=== PATIENT | male | born 1995 ===

== ENCOUNTER 2017-04-05 19:58 | Emergency (ER) | payer BC ==
--- NOTE | 2017-04-05 22:02 | ED PDOC ---
HPI: Abdomen Time Seen by Provider: 04/05/17 22:01 Chief Complaint (Nursing): Abdominal Pain Chief Complaint (Provider): flank pain History Per: Patient Additional Complaint(s): 21-year-old male with no past medical history presents to emergency department with right lower quadrant pain and nausea that started earlier today. Patient denies any vomiting but has had diarrhea. No known fever or chills. Patient denies any dysuria but has had increased frequency today. PMD: none Past Medical History Reviewed: Historical Data, Nursing Documentation, Vital Signs Vital Signs: Last Vital Signs Temp 97.9 F 04/06/17 00:43 Pulse 71 04/06/17 00:43 Resp 18 04/06/17 00:43 BP 108/66 04/06/17 00:43 Pulse Ox 100 04/06/17 00:43 - Medical History PMH: No Chronic Diseases - Surgical History Surgical History: No Surg Hx - Family History Family History: States: Unknown Family Hx, Hypertension - Living Arrangements Living Arrangements: With Family - Social History Current smoker - smoking cessation education provided: No Alcohol: None Drugs: Denies - Home Medications Home Medications: Ambulatory Orders Medication Instructions Recorded Dicyclomine [Bentyl] 20 mg PO BID PRN #30 tab 01/09/16 Polyethylene Glycol 3350 [Miralax] 17 gm PO DAILY PRN #1 bottle 01/09/16 Dicyclomine [Bentyl] 20 mg PO Q12 PRN #20 tab 04/01/16 Dicyclomine [Bentyl] 20 mg PO TID #30 tab 04/23/16 - Allergies Allergies/Adverse Reactions: Allergies Allergy/AdvReac Type Severity Reaction Status Date / Time amoxicillin Allergy RASH Verified 04/05/17 21:30 Review of Systems ROS Statement: Except As Marked, All Systems Reviewed And Found Negative Constitutional: Negative for: Fever, Chills Cardiovascular: Negative for: Chest Pain Respiratory: Negative for: Cough Gastrointestinal: Positive for: Nausea, Abdominal Pain, Diarrhea. Negative for : Vomiting Genitourinary Male: Positive for: Frequency. Negative for: Dysuria, Hematuria Physical Exam - Reviewed Nursing Documentation Reviewed: Yes Vital Signs Reviewed: Yes - Physical Exam Appears: Positive for: Well, Non-toxic, No Acute Distress Skin: Negative for: Rash Eye Exam: Positive for: Normal appearance Cardiovascular/Chest: Positive for: Regular Rate, Rhythm Respiratory: Positive for: Normal Breath Sounds Gastrointestinal/Abdominal: Positive for: Other (Moderate right lower quadrant tenderness with slight guarding, no rebound, no distention, normoactive bowel sounds in all 4 quadrants) Back: Negative for: L CVA Tenderness, R CVA Tenderness Extremity: Positive for: Normal ROM Neurologic/Psych: Positive for: Alert, Oriented - Laboratory Results Result Diagrams: 04/05/17 23:29 02 23:29 Urine dip results: Negative for: Leukocyte Esterase, Blood, Nitrate, Ketones, Glucose, Bilirubin, Protein - ECG O2 Sat by Pulse Oximetry: 99 Pulse Ox Interpretation: Normal - Other Rad CT abd and pelvis with IV contrast X-Ray: Read By Radiologist X-Ray Interpretation: see below Medical Decision Making Medical Decision Makin-year-old male with nausea and abdominal pain Plan: Urine dip CBC CMP Lipase CT abd and pelvis with IV contrast IVF IV toradol CT: ABDOMEN and PELVIS: Intraperitoneal space: There is no free air or free fluid. Bones/joints: The bony structures Soft tissues: There is a small fat containing umbilical hernia. Vasculature: Vascular structures are unremarkable. Lymph nodes: There are multiple mildly enlarged mesenteric nodes in the right lower quadrant.There are no acute osseous abnormalities. IMPRESSION: No acute solid visceral or bowel abnormality, no CT findings of appendicitis; prominent right lower quadrant mesenteric nodes may reflect mesenteric adenitis Thank you for allowing us to participate in the care of your patient. Patient is aware of diagnostic test results. Pain resolved after medication provided. Advised NSAID pain as needed, bland diet and follow-up with clinic or PMD Disposition - Clinical Impression Clinical Impression: Mesenteric adenitis - Patient ED Disposition Is Patient to be Admitted: No Counseled Patient/Family Regarding: Studies Performed, Diagnosis, Need For Followup - Disposition Referrals: [facility] [Outside] Disposition: Routine/Home Disposition Time: 00:49 Condition: STABLE Additional Instructions: Tylenol for pain as needed. Follow-up with clinic or primary doctor for any persistent symptoms. Instructions: Mesenteric Lymphadenitis Forms: [employer] ([place]), [facility] ED School/Work Excuse Results - Lab Results Lab Results: 04/05/17 04/05/17 23:29 23:29 WBC 8.2 D RBC 4.71 Hgb 14.3 Hct 41.1 MCV 87.2 MCH 30.3 MCHC 34.8 RDW 12.5 Plt Count 284 MPV 7.9 Neut % (Auto) 46.8 L Lymph % (Auto) 40.1 H [place] % (Auto) 9.5 Eos % (Auto) 2.7 Baso % (Auto) 0.9 Neut # (Auto) 3.8 Lymph # (Auto) 3.3 [place] # (Auto) 0.8 Eos # (Auto) 0.2 Baso # (Auto) 0.1 Sodium 142 Potassium 3.9 Chloride 100 Carbon Dioxide 29 Anion Gap 17 BUN 8 L Creatinine 0.7 L Est GFR ( Amer) > 60 Est GFR (Non-Af Amer) > 60 Random Glucose 84 Calcium 9.8 Total Bilirubin 0.6 AST 43 ALT 46 Alkaline Phosphatase 109 Total Protein 8.6 H Albumin 4.7 Globulin 3.9 Albumin/Globulin Ratio 1.2 Lipase 76
[2017-04-05 23:32] LABS: BASO # 0.1 K/uL (0.0-0.2); BASO % 0.9 % (0.0-2.0); EOS # 0.2 K/uL (0.0-0.7); EOS % 2.7 % (0.0-4.0); HEMOGLOBIN 14.3 g/dL (12.0-18.0); LYMPH # 3.3 K/uL (1.0-4.3); LYMPH % 40.1 % (20.0-40.0); MEAN CELL VOLUME 87.2 fl (80.0-94.0); MEAN CORPUSCULAR HEMOGLOBIN 30.3 pg (27.0-31.0); MEAN CORPUSCULAR HGB CONC 34.8 g/dL (33.0-37.0); MEAN PLATELET VOLUME 7.9 fl (7.2-11.7); MONO # 0.8 K/uL (0.0-0.8); MONO % 9.5 % (0.0-10.0); NEUT # 3.8 K/uL (1.8-7.0); NEUT % 46.8 % (50.0-75.0); NRBC % 0.2 % (0.0-0.0); RBC 4.71 Mil/uL (4.40-5.90); RED CELL DISTRIBUTION WIDTH 12.5 % (11.5-14.5); WHITE BLOOD COUNT 8.2 K/uL (4.8-10.8)
[2017-04-05 23:40] LABS: ALB/GLOB RATIO 1.2 (1.0-2.1); ALBUMIN 4.7 g/dL (3.5-5.0); ALT/SGPT 46 U/L (21-72); AST/SGOT 43 U/L (17-59); BLOOD UREA NITROGEN 8 mg/dl (9-20); CALCIUM 9.8 mg/dL (8.4-10.2); GFR AFRICAN-AMERICAN > 60; GFR NON-AFRICAN AMERICAN > 60; LIPASE 76 U/L (23-300)
[2017-04-05] MEDS ORDERED: Sodium Chloride 0.9% 100 ML ONE (23:44)
[2017-04-05] MEDS ORDERED: Iohexol 300 100 ML IJ ONE (23:44)
[2017-04-06] MEDS: Sodium Chloride 0.9% 1,000 ML IV STA (00:10)
--- NOTE | 2017-04-06 00:30 | CT ---
EXAM: CT Abdomen and Pelvis With Intravenous Contrast EXAM DATE/TIME: 04/05/2017 10:27 PM CLINICAL HISTORY: 21 years old, male; Pain; Abdominal pain; Localized; Right lower quadrant (rlq); Additional info: Rlq pain, nausea TECHNIQUE: Axial computed tomography images of the abdomen and pelvis with intravenous contrast. All CT scans at this facility use one or more dose reduction techniques, viz.: automated exposure control; ma/kV adjustment per patient size (including targeted exams where dose is matched to indication; i.e. head); or iterative reconstruction technique. Coronal and sagittal reformatted images were created and reviewed. CONTRAST: 95 mL of [id number] administered intravenously. COMPARISON: CT - ABD PELVIS IV CONTRAST ONLY 2016-04-23 03:32 FINDINGS: Lower thorax: Heart size is normal. Lung bases are clear.Seminal vesicles and prostate are unremarkable. ABDOMEN: Liver: There is a small enhancing lesion in the dome of the liver, unchanged. Gallbladder and bile ducts: unremarkable Pancreas: unremarkable Spleen: unremarkable Adrenals: unremarkable Kidneys and ureters: unremarkable Stomach and bowel: Stomach is almost empty. Rotation is normal. There is no obstruction. Ileocecal region is unremarkable. Appendix and terminal ileum are unremarkable. Colon is incompletely distended which limits evaluation. Appendix: See stomach and bowel PELVIS: Bladder: unremarkable Reproductive: Seminal vesicles and prostate are unremarkable. ABDOMEN and PELVIS: Intraperitoneal space: There is no free air or free fluid. Bones/joints: The bony structures Soft tissues: There is a small fat containing umbilical hernia. Vasculature: Vascular structures are unremarkable. Lymph nodes: There are multiple mildly enlarged mesenteric nodes in the right lower quadrant.There are no acute osseous abnormalities. IMPRESSION: No acute solid visceral or bowel abnormality, no CT findings of appendicitis; prominent right lower quadrant mesenteric nodes may reflect mesenteric adenitis
[2017-04-06 00:44] VITALS: BP 108/66; PULSE 71; RESP 18; TEMP 97.9
[2017-04-06 01:00] VITALS: O2SAT 99
== END 2017-04-06 01:15 | disposition home or self-care (01) ==
LOC: H.ER 19:58
DX: I88.0 Nonspecific mesenteric lymphadenitis (principal)
CPT/HCPCS: 74177; 80053; 83690; 85025; 96374; 99283; J1885; J7040; Q9967